=== PATIENT | male | born 1970 | race Caucasian/White ===

== ENCOUNTER → 2020-03-03 | Outpatient (CLI) | payer BC, OTHER | LOC: SJCVCIMAG 13:48 | PROVIDERS: ATTEND Internal Medicine Cardiovascular Disease | DX: I10 Essential (primary) hypertension (principal) ==

== ENCOUNTER → 2021-02-25 | Outpatient (CLI) | payer OTHER | LOC: CAT 12:16 | PROVIDERS: ATTEND Internal Medicine Cardiovascular Disease | DX: Z13.6 Encounter for screening for cardiovascular disorders (principal); E78.00 Pure hypercholesterolemia, unspecified; I25.10 Atherosclerotic heart disease of native coronary artery without angina pectoris ==